=== PATIENT | female | born 1965 | race Caucasian/White ===

== ENCOUNTER → 2018-07-23 | Outpatient (CLI) | payer OTHER ==
[~2018-07-23] MED LIST: BUPIVACAINE 0.5% 30 ML SDV ONE; LIDOCAINE 1% 300 MG/30 ML SDV ONE
== END ==
LOC: FIMAGING 07:17
PROC: 0HBT3ZX Excision of Right Breast, Percutaneous Approach, Diagnostic (ICD-10-PCS; principal; 2018-07-23)
DX: D24.1 Benign neoplasm of right breast (principal); N60.31 Fibrosclerosis of right breast; N60.91 Unspecified benign mammary dysplasia of right breast